=== PATIENT | male | born 1960 | race African-American/Black ===

== ENCOUNTER 2018-09-04 01:33 | Emergency (ER) | payer MEDICAID ==
[~2018-09-04] VITALS: Ht 172.7 cm; Wt 87.0 kg
[~2018-09-04 01:33] MED LIST: BACL-141 PO; DULO60CA63 PO; FOLI0.4T2 MT; GABA-290 PO; HYDR-4001 MT; MULT-1146 MT; OMEP40CA34 PO; QUET400T11 PO; VITAMIN C
[2018-09-04 01:42] VITALS: BP 137/92
== END 2018-09-04 03:00 | disposition left against medical advice (07) ==
LOC: ER 01:33
DX: Z53.21 Procedure and treatment not carried out due to patient leaving prior to being seen by health care provider (principal)
CPT/HCPCS: 93005

== ENCOUNTER 2023-03-05 17:41 | Emergency (ER) | payer MEDICAID ==
[~2023-03-05] VITALS: Ht 177.8 cm; Wt 73.0 kg
[~2023-03-05 17:41] MED LIST changes: +BICT1TAB PO; +DULO60CA45 MT; -DULO60CA63 PO; +FOLI-43 MT; -FOLI0.4T2 MT; +FOLI0.4T6 MT; -GABA-290 PO; -HYDR-4001 MT; +OMEP40CA20 PO; -OMEP40CA34 PO; -QUET400T11 PO; +THIA50TA12 MT; -VITAMIN C; +ZOLP10TA2 MT
[2023-03-05 17:43] VITALS: O2SAT 98
[2023-03-05 18:49] VITALS: TEMP 98.3
[2023-03-05] MEDS ORDERED: PIPERACILLIN/TAZ 3.375G PREMIX 50 ML IV NR (19:00)
[2023-03-05] MEDS ORDERED: MORPHINE SULFATE 4 MG/ML CPJ (NOT FOR IM USE) IV ONE (19:00)
[2023-03-05] MEDS ORDERED: ONDANSETRON HCL 4MG/2ML INJ IV ONE (19:00)
[2023-03-05] MEDS ORDERED: PIPERACILLIN/TAZOBACTAM 3.375GM/50ML PREMIX IV ONE (19:00)
[2023-03-05] MEDS ORDERED: SODIUM CHLORIDE 0.9% 1000ML BAG (SEPSIS BOLUS) IV ONE (19:00)
[2023-03-05 19:16] VITALS: BP 125/74; PULSE 110; RESP 16
[2023-03-05 19:22] LABS: BASOPHILS % 0.6 % (0.0-2.0); HEMATOCRIT. 40.3 % (42.0-52.0); HEMOGLOBIN. 13.2 g/dL (14.0-18.0); LYMPHOCYTES % 13.5 % (20.0-50.0); MEAN CORPUSCULAR HEMOGLOBIN 31.5 pg (28.0-32.0); MEAN CORPUSCULAR HGB CONC 32.7 g/dL (31.0-37.0); MEAN CORPUSCULAR VOLUME 96.3 fL (80.0-94.0); MEAN PLATELET VOLUME 10.1 fl (7.4-10.4); MONOCYTES % 9.1 % (2.0-8.0); NEUTROPHILS % 76.8 % (40.0-76.0); PLATELET 176 x1000/uL (130-400); RED BLOOD CELL COUNT 4.18 mill/uL (4.7-6.1); RED CELL DISTRIBUTION WIDTH 12.9 % (11.6-14.6); WHITE BLOOD COUNT 5.9 x1000/uL (4.5-11.0)
[2023-03-05 19:29] LABS: DIFFERENTIAL COMMENT 1
[2023-03-05 19:33] LABS: ALANINE AMINOTRANSFERASE 32 IU/L (10-49); ALBUMIN 4.4 g/dL (3.2-4.8); ASPARTATE AMINOTRANSFERASE 57 IU/L (<34); CARBON DIOXIDE 21 mEq/L (21-32); CHLORIDE 102 mEq/L (98-107); GLUCOSE 95 mg/dL (70-105); POTASSIUM 4.1 mEq/L (3.5-5.1); PROTEIN TOTAL 8.4 g/dL (6.0-8.3); SODIUM 136 mEq/L (136-145); TROPONIN I HIGH SENSITIVITY 11 ng/L (3.0-53); UREA NITROGEN BLOOD 10 mg/dL (9-23)
[2023-03-05 22:18] LABS: LACTIC ACID 3.7 mmol/L (0.4-2.0)
[2023-03-05] MEDS ORDERED: TOPUD MT (22:27)
[2023-03-05] MEDS ORDERED: ONDA4TAB50 MT (22:27)
== END 2023-03-05 23:01 | disposition home or self-care (01) ==
LOC: ER 17:41
DX: R10.84 Generalized abdominal pain (principal); R53.1 Weakness; E11.9 Type 2 diabetes mellitus without complications; I10 Essential (primary) hypertension; Z79.899 Other long term (current) drug therapy
CPT/HCPCS: 80053; 82962; 83880; 83605; 85025; 84484; 36415; 71045; 74176; 93005; 96365; 96375; 99285; J2405; J2543; J2270; Z7610 ×4

== ENCOUNTER 2023-05-31 12:17 | Emergency (ER) | payer MEDICAID ==
[~2023-05-31] VITALS: Ht 182.9 cm; Wt 77.0 kg
[~2023-05-31 12:17] MED LIST changes: +ONDA4TAB50 MT; +TOPUD MT
[2023-05-31 12:26] VITALS: O2SAT 99
[2023-05-31 13:35] LABS: BASOPHILS % 0.7 % (0.0-2.0); EOSINOPHILS % 0.8 % (0.0-5.0); HEMOGLOBIN. 10.8 g/dL (14.0-18.0); LYMPHOCYTES % 24.6 % (20.0-50.0); MEAN CORPUSCULAR HEMOGLOBIN 30.1 pg (28.0-32.0); MEAN CORPUSCULAR HGB CONC 32.6 g/dL (31.0-37.0); MEAN CORPUSCULAR VOLUME 92.4 fL (80.0-94.0); MEAN PLATELET VOLUME 8.8 fl (7.4-10.4); MONOCYTES % 8.8 % (2.0-8.0); NEUTROPHILS % 65.1 % (40.0-76.0); PLATELET 272 x1000/uL (130-400); RED BLOOD CELL COUNT 3.57 mill/uL (4.7-6.1); RED CELL DISTRIBUTION WIDTH 15.4 % (11.6-14.6)
[2023-05-31 13:46] LABS: ACETAMINOPHEN < 2 ug/mL (10-30); ALANINE AMINOTRANSFERASE 161 IU/L (10-49); ALBUMIN 3.8 g/dL (3.2-4.8); ASPARTATE AMINOTRANSFERASE 151 IU/L (<34); BILIRUBIN TOTAL 0.3 mg/dL (0.1-1.0); CALCIUM 8.7 mg/dL (8.7-10.4); CARBON DIOXIDE 21 mEq/L (21-32); CHLORIDE 105 mEq/L (98-107); CREATININE 0.9 mg/dL (0.6-1.3); ETHANOL BLOOD 119 mg/dL (<10); GLUCOSE 101 mg/dL (70-105); POTASSIUM 3.2 mEq/L (3.5-5.1); PROTEIN TOTAL 7.6 g/dL (6.0-8.3); SODIUM 136 mEq/L (136-145); TROPONIN I HIGH SENSITIVITY 4 ng/L (3.0-53); UREA NITROGEN BLOOD 14 mg/dL (9-23)
[2023-05-31 13:48] LABS: CLARITY URINE CLEAR (CLEAR); COLOR URINE YELLOW (YELLOW); GLUCOSE URINE NEGATIVE (NEGATIVE); KETONES URINE NEGATIVE (NEGATIVE); LEUKOCYTE ESTERASE URINE NEGATIVE (NEGATIVE); NITRITE URINE NEGATIVE (NEGATIVE); OCCULT BLOOD URINE TRACE (NEGATIVE); PH URINE 5.5 (4.5-8.0); PROTEIN URINE 1+ (NEGATIVE); SPECIFIC GRAVITY URINE 1.026 (1.005-1.030)
[2023-05-31] MEDS: SODIUM CHLORIDE 0.9% 1,000 ML IV ONE (13:57)
[2023-05-31 14:00] LABS: *AMPHETAMINES SCREEN URINE PRESUMPTIVE POSITIVE (NEGATIVE); *BARBITURATES SCREEN URINE NEGATIVE (NEGATIVE); *BENZODIAZEPINES SCREEN URINE PRESUMPTIVE POSITIVE (NEGATIVE); *COCAINE SCREEN URINE NEGATIVE (NEGATIVE); CANNABINOID URINE SCREEN PRESUMPTIVE POSITIVE (NEGATIVE); ECSTASY MDMA SCREEN URINE CONF.TEST INDICATED (NEGATIVE); METHADONE URINE SCREEN Neg (NEGATIVE); OPIATES URINE SCREEN NEGATIVE (NEGATIVE); PHENCYCLIDINE URINE SCREEN NEGATIVE (NEGATIVE)
[2023-05-31 14:16] LABS: HYALINE CASTS URINE 0-5 /lpf; MUCUS URINE 1+ /lpf (NONE/TRACE); SQUAMOUS EPITHELIAL CELL URINE RARE /lpf (RARE/1+)
[2023-05-31 14:19] LABS: WBC URINE 0-2 /hpf (0-2)
[2023-05-31 14:20] LABS: BACTERIA URINE TRACE
[2023-05-31] MEDS: POTASSIUM CHLORIDE 20MEQ TABLET SR PO ONE (15:24)
[2023-05-31] MEDS: KCL 20MEQ/100ML PREMIX 100 ML IV ONE (16:18)
[2023-05-31] MEDS: DEXTROSE 50% WATER 50ML SYRINGE IV ONE (16:20)
[2023-05-31 16:21] LABS: ALANINE AMINOTRANSFERASE 142 IU/L (10-49); ALBUMIN 3.5 g/dL (3.2-4.8); ASPARTATE AMINOTRANSFERASE 122 IU/L (<34); BILIRUBIN TOTAL 0.3 mg/dL (0.1-1.0); CALCIUM 8.4 mg/dL (8.7-10.4); CARBON DIOXIDE 24 mEq/L (21-32); CHLORIDE 108 mEq/L (98-107); CREATININE 0.7 mg/dL (0.6-1.3); GLUCOSE 68 mg/dL (70-105); POTASSIUM 3.6 mEq/L (3.5-5.1); PROTEIN TOTAL 7.1 g/dL (6.0-8.3); SODIUM 140 mEq/L (136-145); UREA NITROGEN BLOOD 10 mg/dL (9-23)
[2023-05-31] MEDS: ACETAMINOPHEN 325MG TABLET PO ONE (20:58)
[2023-05-31] MEDS: KETOROLAC 60MG/2ML VIAL IM ONE (20:59)
[2023-06-01] MEDS: ACETAMINOPHEN 325MG TABLET PO ONE (10:02)
[2023-06-01] MEDS: QUETIAPINE FUMARATE 50MG TABLET PO SCH (14:15)
[2023-06-01] MEDS ORDERED: BICT1TAB PO (18:41)
[2023-06-01 19:55] VITALS: BP 138/92; PULSE 72; RESP 18; TEMP 97.9
== END 2023-06-01 20:27 ==
LOC: ER 12:17
DX: T43.592A Poisoning by other antipsychotics and neuroleptics, intentional self-harm, initial encounter (principal); I10 Essential (primary) hypertension; E11.9 Type 2 diabetes mellitus without complications; R51.9 Headache, unspecified; Z20.822 Contact with and (suspected) exposure to COVID-19; Z88.6 Allergy status to analgesic agent; Z79.899 Other long term (current) drug therapy; Z98.890 Other specified postprocedural states; Y92.9 Unspecified place or not applicable
CPT/HCPCS: 80053; 80305; 81003; 80307; 80329; 80320; 82962; 85025; 84484; 36415; 71045; 70450; 96361; 96365; 96372; 96375; 99285; 87426; J1885; J3480; J7030; Z7610; G0480